=== PATIENT | female | born 1970 | race Caucasian/White ===

== ENCOUNTER 2021-09-20 16:28 | Outpatient (REF) | payer MEDICARE, MEDICAID, SELFPAY | END 2021-09-20 16:29 | disposition home or self-care (01) | LOC: LBN 16:28 | PROVIDERS: PCP Nurse Practitioner Family; Visit Provider Obstetrics & Gynecology | DX: N89.8 Other specified noninflammatory disorders of vagina (principal) | CPT/HCPCS: 87480; 87510; 87660 ==

== ENCOUNTER 2021-11-02 15:14 | Outpatient (REF) | payer MEDICARE, MEDICAID, SELFPAY ==
[2021-11-02 20:49] LABS: HCT 34.2 % (36.0-46.0); HGB 11.4 g/dL (11.2-15.7); MCH 33.5 pg (27.0-33.0); MCHC 33.3 % (32.0-36.0); MCV 100.6 fL (80-95); Platelet Count 172 10^3/uL (130-400); RDW 13.1 % (11.7-14.6); RDW-SD 48.8 fL; WBC 6.55 10^3/uL (4.4-10.8)
[2021-11-02 21:18] LABS: ALT 24 U/L (14-59); AST 11 U/L (15-37); Albumin 3.4 g/dL (3.4-5.0); Alkaline Phosphatase 77 U/L (46-116); Anion Gap 6.2 mmol/L (3-11); BUN 12 mg/dL (7-18); Bilirubin, Total 0.2 mg/dL (0.2-1.0); CO2 31.8 mmol/L (21.0-32.0); CREATININE 0.8 mg/dL (0.55-1.02); Calcium 8.8 mg/dL (8.5-10.1); Calculated LDL 134 mg/dL (<100); Chloride 103 mmol/L (98-107); Cholesterol 196 mg/dL (<200); Glucose 99 mg/dL (74-106); HDL Cholesterol 48 mg/dL (40-60); Potassium 4.2 mmol/L (3.5-5.1); Sodium 141 mmol/L (136-145); Total Protein 6.4 g/dL (6.4-8.2); Triglyceride 73 mg/dL (<150)
[2021-11-02 21:20] LABS: VALPROIC ACID 82.7 ug/mL
[2021-11-07 15:05] LABS: Iron 110 ug/dL (50-170); Total Iron Binding Capacity 259 ug/dL (250-450); Transferrin Sat 42 % (15-50)
[2021-11-07 22:02] LABS: Vitamin B12 931 pg/mL (211-911)
== END 2021-11-02 15:15 | disposition home or self-care (01) ==
LOC: NCHCN 15:14
PROVIDERS: PCP Nurse Practitioner Family; Visit Provider Nurse Practitioner Family
DX: Z51.81 Encounter for therapeutic drug level monitoring (principal); R20.2 Paresthesia of skin; J44.9 Chronic obstructive pulmonary disease, unspecified; Z00.00 Encounter for general adult medical examination without abnormal findings
CPT/HCPCS: 80053; 80061; 85027; 80164; 82607; 83540; 83550

== ENCOUNTER 2021-12-29 17:46 | Outpatient (REF) | payer MEDICARE, MEDICAID, SELFPAY | END 2021-12-29 17:47 | disposition home or self-care (01) | LOC: LBN 17:46 | PROVIDERS: PCP Nurse Practitioner Family; Visit Provider Obstetrics & Gynecology | DX: N89.8 Other specified noninflammatory disorders of vagina (principal); R32 Unspecified urinary incontinence | CPT/HCPCS: 87086; 87480; 87510; 87660 ==

== ENCOUNTER 2022-01-10 01:34 | Outpatient (CLI) | payer MEDICARE, MEDICAID, SELFPAY ==
--- NOTE | 2022-01-10 | DI.US_ITS ---
Exam(s) US THYROID EXAM: US THYROID CLINICAL HISTORY: HYPOTHYROID E03.9. TECHNIQUE: Ultrasound thyroid performed using standard protocol. COMPARISON: No exams were available for comparison FINDINGS: Both thyroid lobes exhibit normal size and echotexture. The isthmus is not thickened. There are no significant thyroid nodules. No significant adenopathy. ISTHMUS: Normal thickness. There are no nodules in the isthmus. IMPRESSION: 1. Normal sized thyroid gland 2. No thyroid nodules evident. 3. There is no significant lymphadenopathy. DATA REPOSITORY:
== END 2022-01-10 01:54 ==
PROVIDERS: PCP Nurse Practitioner Family; Visit Provider Nurse Practitioner Family
DX: E03.9 Hypothyroidism, unspecified (principal)
CPT/HCPCS: 76536

== ENCOUNTER → 2022-01-23 13:28 | Outpatient (BNVA) | payer MEDICARE, MEDICAID, SELFPAY | PROVIDERS: PCP Nurse Practitioner Family; Referring Provider Nurse Practitioner Family; Visit Provider Nurse Practitioner Adult Health | DX: G43.909 Migraine, unspecified, not intractable, without status migrainosus (principal); J44.9 Chronic obstructive pulmonary disease, unspecified | CPT/HCPCS: 99204 ==

== ENCOUNTER → 2022-05-10 14:42 | Outpatient (BNVA) | payer MEDICARE, MEDICAID, SELFPAY | PROVIDERS: PCP Nurse Practitioner Family; Referring Provider Nurse Practitioner Family; Visit Provider Physical Therapy Assistant | DX: Z12.11 Encounter for screening for malignant neoplasm of colon (principal) ==

== ENCOUNTER 2022-05-23 19:38 | Outpatient (REF) | payer MEDICARE, MEDICAID, SELFPAY ==
[2022-05-23 20:34] LABS: TSH (W/Ref FT4) 1.06 uIU/mL (0.36-3.74)
== END 2022-05-23 19:39 | disposition home or self-care (01) ==
LOC: NCHCN 19:38
PROVIDERS: PCP Nurse Practitioner Family; Visit Provider Nurse Practitioner Family
DX: E03.9 Hypothyroidism, unspecified (principal)
CPT/HCPCS: 84443

== ENCOUNTER 2022-06-01 16:18 | Outpatient (REF) | payer MEDICARE, MEDICAID, SELFPAY ==
--- NOTE | 2022-06-01 15:15 | PAPFT_PTH ---
PATIENT: Penelope Mathew LOC: [facility]#:[id number] AGE/SX: 51/F ROOM: RE06/01/[address]: Demi Goins : 1970 BED: DIS: 06/01/2022 SPEC #: [id number] RECD: 06/04/22 12:38 STATUS: CONI REIlsa #: [id number] GUANACO: 06/01/22 15:[address]: Demi Goins DEPT: [facility] Cytology RECD BY: Braxton Mccoy Tissues: 1 - CX/ENDOCX FOR PAP SMEARS Procedures: PAP THIN PREP/UVM Screening HPV DNA PROBE Comments: [id number] (HPV 16 & 18/45)
== END 2022-06-01 16:19 | disposition home or self-care (01) ==
LOC: NCHCN 16:18
PROVIDERS: PCP Nurse Practitioner Family; Visit Provider Nurse Practitioner Family
DX: Z12.4 Encounter for screening for malignant neoplasm of cervix (principal); Z01.419 Encounter for gynecological examination (general) (routine) without abnormal findings; Z11.51 Encounter for screening for human papillomavirus (HPV)
CPT/HCPCS: 88142; 87624

== ENCOUNTER 2022-06-06 06:43 | Day surgery (SDC) | payer MEDICARE, MEDICAID, SELFPAY ==
--- NOTE | 2022-06-06 06:22 | W.ANESPRE ---
General Info Date of Service Date Performed: 06/06/22 Height: 5 ft 6 in Weight: 84.822 kg Body Mass Index (BMI): 30.2 Surgical Procedure: Operation Date: 06/06/22 08:20 Proposed Procedure Side Surgeon solitario Hernandez MD Meds Allergies and Home Medications Allergies Allergy/AdvReac Type Severity Reaction Status Date / Time No Known Allergies Allergy Verified 06/06/22 07:13 Home Medication Medication Instructions Recorded divalproex 500 mg tablet,extended 500 mg PO DAILY 09/20/21 release 24 hr (Depakote ER) levothyroxine 75 mcg capsule 75 mcg PO DAILY 09/20/21 oxybutynin chloride 5 mg tablet 5 mg PO BID 09/20/21 albuterol sulfate 90 mcg/actuation 2 puff inhalation Q6H PRN 10/23/21 aerosol inhaler cariprazine 4.5 mg capsule 4.5 mg PO DAILY 10/23/21 (Vraylar) sumatriptan succinate 4 mg/0.5 mL 4 mg subcut DAILY PRN 12/11/21 subcutaneous pen injector (Imitrex STATdose Pen) celecoxib 200 mg capsule 200 mg PO DAILY 01/23/22 clonazepam 0.5 mg tablet 0.5 mg PO QHS 01/23/22 ferrous gluconate 240 mg (27 mg 240 mg PO DAILY 01/23/22 iron) tablet (Ferate) prazosin 1 mg capsule 1 mg PO QHS 01/23/22 quetiapine 100 mg tablet (Seroquel) 200 mg PO QHS 01/23/22 vilazodone 20 mg tablet (Viibryd) 40 mg PO DAILY 01/23/22 bisacodyl 5 mg tablet,delayed 5 mg PO ONCE #4 tabs 05/10/22 release (Dulcolax (bisacodyl)) polyethylene glycol 3350 17 17 g PO ONCE #238 grams 05/10/22 gram/dose oral powder sumatriptan succinate 4 mg/0.5 mL 4 mg subcut DIRECTED 06/04/22 subcutaneous pen injector tiotropium bromide 18 mcg capsule 1 inh inhalation DAILY 06/04/22 with inhalation device (Spiriva with HandiHaler) Current Visit Medications: Current Medications Generic Name Dose Route Start Last Admin Trade Name Freq PRN Reason Stop Dose Admin Ringer's Solution 1,000 mls @ 80 mls/hr 06/06/22 06:00 IV 07/05/22 23:59 INFUSION [facility] IV Miscellaneous Supplies 1 each 06/06/22 06:00 Iv Access IV 07/05/22 23:59 DIRECTED ANGELA Sodium Chloride 0 ml 06/06/22 06:00 Normal Saline Flush 10 Ml Syr IV 07/05/22 23:59 PRN PRN Sodium Chloride 0 ml 06/06/22 06:00 Normal Saline 10 Ml Vial IJ 07/05/22 23:59 DIRECTED PRN Sterile Water 0 ml 06/06/22 06:00 Water,Injection,Sterile 10 Ml Vial IJ 07/05/22 23:59 DIRECTED PRN PFSH Active Problems Active Problems: Problem Status Onset Code COPD (chronic obstructive pulmonary disease) J44.9 Smoker F17.200 Screening for colon cancer Z12.11 Medical History Medical History Candidal skin infection Cervical disc disease Depression Dyspareunia Fatigue H/O drug abuse Pt. states last drug use 20 years ago H/O suicide attempt H/O syphilis Hypothyroid Incontinence of urine in female Migraines Schizoaffective disorder Seasonal allergies Surgical History Surgical History H/O section Hx of hysterectomy for benign disease S/P cervical spinal fusion Tobacco Smoking/Tobacco Use Status: Current every day Tobacco Type: cigarettes Alcohol Alcohol Intake: never Substance Use Substance use: Current Sobriety Substance use type: former substance user Prental History Past Pregnancies Del. Date GA/Weeks # Preg Succ Route Wgt Sex Labor Lgth Anesthesia Location [facility] Compl 07/04/88 41 No 4479.225 g Male [facility] 02/23/90 40 No Female [facility] 06/25/92 40 No Female [facility] Vital Signs and Lab Results Vital Signs Most Recent Vital Signs in EMR: Temp Pulse Resp BP Pulse Ox 36.5 C 76 16 135/84 95 06/06/22 07:04 06/06/22 07:04 06/06/22 07:04 06/06/22 07:04 06/06/22 07:04 Lab Results Blood Type / Crossmatch: No Data to Display Complete Blood Count: No Data to Display Complete Metabolic Panel: No Data to Display Liver Function Panel: No Data to Display Coagulation Panel: No Data to Display Cardiac Panel: No Data to Display Arterial Blood Gas: No Data to Display Venous Blood Gas: No Data to Display Pancreas Panel: No Data to Display Thyroid Panel: Thyroid Stimulating Hormone (TSH) 1.06 uIU/mL (0.36-3.74) 05/23/22 14:36 Infectious Disease: No Data to Display Blood Cultures: No Data to Display Toxicology Panel: No Data to Display Panel: No Data to Display Anesthesia Assessment and Plan Anesthesia History Personal History: No History of Anesthesia Complications Family History: No Family History of Anesthesia Complications Exercise Tolerance Exercise Tolerance: Metabolic Equivalents>4 Cardiac & Pulmonary Exam Cardiac Exam: Normal S1/S2 Heart Sounds Pulmonary Exam: Clear Bilateral Breath Sounds Implantable Cardiac Device Does patient have a Pacemaker or an ICD?: No Airway Exam Known Difficult Airway: No Mallampati Class: 2 Mouth Opening: Normal (> 3cm) Thyromental Distance: Greater than 3 cm Neck Range of Motion: Full ROM Neck Circumference: Normal Teeth Condition: Normal Dentition ASA Classification ASA Score: ASA 2 Emergency Case?: No NPO Status NPO Status: NPO Clears >2 hours, Solids >8 hours Status Status: Not Relevant due to Medical History Anesthesia Plan Resuscitation Status: Full Code Anesthesia Technique: General Anesthesia Airway Planned: Natural Airway Monitors Used: Standard Monitors Preoperative Comments:: 51 yo female for screening colo. Sig PMHx: depression/schizoaffective, hypothyroid (levothyroxine), c spine fusion c4-7, smoker, former drug abuse, COPD (albuterol, spiriva), migraine.
--- NOTE | 2022-06-06 06:46 | W.COLOREPORT ---
Colonoscopy Report Date of procedure: 06/06/22 Pre-op diagnosis general: Colon Cancer Screening Post-op diagnosis procedure note: other (polyps) Procedure: Colonoscopy with polypectomy Surgeon: Ania Hernandez Anesthesia Type: General:No Airway Estimated blood loss (mL): 5 Pathology: other (Ascending, descending, sigmoid and rectal polyps) Complications: None Disposition: same day Indications: The patient is here for Colonoscopy pre-op. She has no family history of colon cancer. She has not had any bowel habit changes. -Discussed colonoscopy bowel prep as well as the procedure. Discussed possible complications of the procedure to include bleeding, pain, perforation, missed small lesion/polyp, sore throat, aspiration and adverse reaction to the medications. Questions were answered to patient?s satisfaction. No guarantees were implied or given.? Prep: Miralax/Dulcolax Procedure Start Time: 08:43 Procedure End Time: 09:38 Retraction Time: 44 minutes Findings: numerous polyps Procedure Description: After informed consent was obtained the patient was taken to the procedure room and placed in a left decubitous position. Monitors were applied and a time out was done. The patients name, date of , procedure, allergies to medications and metal in their body was reviewed. The patient was then sedated. Once sedated and comfortable a rectal exam was done. External exam was normal. Internal exam revealed a normal sphincter tone and no palpable masses. The scope was then introduced and retro-flexed. No internal hemorrhoids, polyps or masses were identified on retro-flexion. There was an internal skin tag. The scope was then advanced to the cecum without difficulty. The ileocecal vlave and appendiceal orifice were identified. The prep was good. The scope was then slowly retracted over 44 minutes back into the rectum. Polyps were removed with cold forceps in the ascending colon x3, descending polyps x2, sigmoid polyps x12 and rectum x10. One polyp was removed with a hot snare in the rectum.. There was no diverticulosis noted. The scope was removed and the patient was woken up and taken back to Same day surgery in stable condition. The patient tolerated the procedure well and there were no immediate complications.
--- NOTE | 2022-06-06 06:47 | W.PM.DSUDISC ---
Discharge Plan Disposition Patient Disposition: HOME Condition: Good Discharge Details Reason For Visit: colonoscopy Attending Provider: Ania Hernandez Primary Care Provider: Demi Goins Home Meds and New Rx's Prescriptions: Continued levothyroxine 75 mcg capsule 75 mcg PO DAILY divalproex [Depakote ER] 500 mg tablet extended release 24 hr 500 mg PO DAILY oxybutynin chloride 5 mg tablet 5 mg PO BID quetiapine [Seroquel] 100 mg tablet 200 mg PO QHS Label Comments: pt reports Viibryd 20 mg tablet 40 mg PO DAILY Rx Instructions: must administer with a meal/food prazosin 1 mg capsule 1 mg PO QHS ferrous gluconate [Ferate] 240 mg (27 mg iron) tablet 240 mg PO DAILY celecoxib 200 mg capsule 200 mg PO DAILY clonazepam 0.5 mg tablet 0.5 mg PO QHS Rx Instructions: administer 30 minutes before bedtime albuterol sulfate 90 mcg/actuation HFA aerosol inhaler 2 puff inhalation Q6H PRN Vraylar 4.5 mg capsule 4.5 mg PO DAILY sumatriptan succinate [Imitrex STATdose Pen] 4 mg/0.5 mL pen injector 4 mg subcut DAILY PRN Rx Instructions: do not exceed 2 doses in a 24 hour period Spiriva with HandiHaler 18 mcg capsule, w/inhalation device 1 inh INHALATION DAILY Label Comments: INHALE THE CONTENTS OF 1 CAPSULE VIA INHALATION DEVICE EVERY DAY sumatriptan succinate 4 mg/0.5 mL pen injector 4 mg SUBCUT DIRECTED Discontinued bisacodyl [Dulcolax (bisacodyl)] 5 mg tablet,delayed release (DR/EC) 5 mg PO ONCE Qty: 4 0RF Rx Instructions: Take according to provider's instructions for colonoscopy prep. polyethylene glycol 3350 17 gram/dose powder 17 g PO ONCE Qty: 238 0RF Rx Instructions: To be taken as directed by prescriber's office for colonoscopy prep. Discharge Instructions Instructions: Colorectal Polyps (DC) Additional Instructions: Findings: 28 polyps Follow up: will depend on final pathology. Referal to a outpatient admitting clerk is also recommended due to the number of polyps Please call if you develop: fevers >101.5 Nausea or Vomiting Abdominal pain that is not transient Rectal bleeding that is more then a tbsp A hard abdomen and inability to pass gas DAY SURGERY UNIT POST ENDOSCOPY INSTRUCTIONS Instructions for everyone who is given Anesthesia: For your safety, please do the following for the next 24 Hours: a. Do not drive or operate dangerous equipment b. Do not drink alcohol beverages or use any recreational drugs for the first 24 hours or while taking pain medications. The medications in your body may have a reaction that can be dangerous. c. Do not make any important decisions or sign any important papers 1. Generally there are no restrictions on your activity after a day or so has gone by, but you may feel a bit fatigued for a few days. 2. After you arrive home you may have a light meal and return to a normal diet as you can tolerate it without feeling sick to your stomach. 3. After surgery, you may feel pain or discomfort. This should be only transient, but if it persists please contact your doctor. 4. If there are any questions regarding the findings of your procedure, please feel free to contact your doctor. 6. If you are unable to contact your doctor with a problem, contact the hospital at [phone]. 7. Continue all your regular medications unless directed otherwise. I understand the above instructions and have no questions. Signature of Patient or Responsible Adult Escort Date/Time Name of Responsible Adult Escort Signature of Nurse Date/Time Stand Alone Forms: Chel Nazario (JACQUELINE) Activity:: Activity as Tolerated Diet:: As Tolerated Discharge Orders Discharge Orders: Discharge Order (Routine); Ordered 06/06/22 Ordered By: Ania Hernandez
[2022-06-06 07:04] VITALS: BP 135/84; PULSE 76; RESP 16; TEMP 36.5; O2SAT 95
[2022-06-06] MEDS: Lactated Ringers 1,000 ML 80 ML IV (07:34)
[2022-06-06 07:47] VITALS: BP 135/84; PULSE 76; RESP 16; TEMP 36.5; O2SAT 95
[2022-06-06 08:28] VITALS: BMI 30.2
--- NOTE | 2022-06-06 08:51 | BOWEL_PTH ---
PATIENT: Penelope Mathew LOC: [facility] U#:[id number] AGE/SX: 51/F ROOM: RE06/06/[address]: Ania Hernandez MD : 1970 BED: DIS: 06/06/2022 SPEC #: [id number] RECD: 06/06/22 13:08 STATUS: CONI REQ #: [id number] GUANACO: 06/06/22 08:[address]: Ania Hernandez DEPT: Surgical Specimen RECD BY: Ariella Daniels ENTERED: 06/06/22 13:11 SP TYPE: Bowel OTHR DR: Demi Goins Tissues: 1 - BIOPSY BOWEL 2 - BIOPSY BOWEL 3 - BIOPSY BOWEL 4 - BIOPSY BOWEL Procedures: GROSS AND MICRO LEVEL 4 Comments: [id number]
[2022-06-06 09:43] VITALS: BP 156/109; PULSE 67; RESP 16; TEMP 36.3; O2SAT 98
[2022-06-06 10:19] VITALS: BP 142/93; PULSE 56; RESP 16; TEMP 36.4; O2SAT 98
--- NOTE | 2022-06-06 10:24 | W.ANESPOSTOP ---
Postoperative Evaluation Date, Time and Location Date Performed: 06/06/22 Time Performed: 09:55 Patient Location: Day Surgery Unit Vital Signs Most Recent Imported Vital Signs: Most Recent Vital Signs Temp Pulse Resp BP Pulse Ox 36.4 C L 56 L 16 142/93 H 98 06/06/22 10:19 06/06/22 10:19 06/06/22 10:19 06/06/22 10:19 06/06/22 10:19 Pain Score Most Recent Pain Score: Most Recent Pain Score Pain Level 0 06/06/22 10:19 Assessment Mental Status: Awake (Alert & Oriented to Patient Baseline) Airway and Respiratory Function: Patent airway with normal (patient baseline) respiratory exam Cardiovascular Function: Hemodynamically Stable Hydration Status: Adequately Hydrated Nausea & Vomiting: No Nausea or Vomiting Pain: Pt. Denies Any Pain Peripheral Nerve Block: Patient did not receive a nerve block
== END 2022-06-06 10:55 | disposition home or self-care (01) ==
PROVIDERS: PCP Nurse Practitioner Family; Visit Provider Surgery
PROC: 0DJD8ZZ Inspection of Lower Intestinal Tract, Via Natural or Artificial Opening Endoscopic (ICD-10-PCS; CPT 45378; principal; 2022-06-06 08:15)
DX: Z12.11 Encounter for screening for malignant neoplasm of colon (principal); F17.210 Nicotine dependence, cigarettes, uncomplicated; J44.9 Chronic obstructive pulmonary disease, unspecified; K62.1 Rectal polyp; K63.5 Polyp of colon
CPT/HCPCS: 45385; 45380; 88305; J2704

== ENCOUNTER → 2022-06-08 00:09 | Outpatient (CLI) | payer MEDICARE, MEDICAID, SELFPAY ==
--- NOTE | 2022-06-08 13:00 | DI.CTLCSR_ITS ---
Exam(s) CT CHEST LUNG CANCER SCREEN EXAM: CT CHEST LUNG CANCER SCREEN CLINICAL HISTORY: CIGARETTE SMOKER, F17.210; SCREENING FOR LUNG CA TECHNIQUE: Imaging Protocol: Axial computed tomography images with coronal and sagittal reformatted images were created and reviewed. Low dose screening protocol. COMPARISON: No exams were available for comparison FINDINGS: Tracheobronchial tree: No bronchiectasis or mucus plugging.. Mediastinum and Angely: No dominant adenopathy or fluid collection. Pulmonary parenchyma: No consolidation or dominant measurable mass. No visible emphysematous or inter stitial changes. Lung Nodules: 7 millimeter diameter ground-glass nodule right upper lobe. No suspicious nodules. Pleura: No effusion. No pneumothorax. Heart: The heart is not dilated. Mild coronary artery calcifications are seen. Aorta: Thoracic aorta non-dilated. Upper abdomen: Unremarkable. Bones: Lower cervical fusion. Degenerative disc changes. No compression fractures. Soft Tissues: Unremarkable. IMPRESSION: A 7 millimeter ground-glass nodule right upper lobe. No suspicious pulmonary nodules. Lung RADS Cat 2 - Benign Appearance / Behavior: Nodules with a very low likelihood of becoming a clin ically active cancer due to size or lack of growth Lung-RADS 1.0 CATEGORIES: Category 0 - Prior chest CT exam(s) being located for comparison. Category 1 - Annual screening in 12 months. No nodules or definitely benign nodules. Category 2 - Annual screening in 12 months. Benign appearance. Nodules with low likelihood of becomin g active cancer. Category 3 - 6-month follow-up. Probably benign. Short-term follow-up suggested. Nodules with low lik elihood of becoming active cancer. Category 4A - 3-month follow-up and CT/PET if >8 mm in size. Suspicious finding. Findings which requi re additional testing. Category 4B - Findings which require additional testing and tissue sampling. Category 4X - Category 3 or 4 nodules with additional features or imaging findings that increases the suspicion of malignancy. Modifier S- Potentially clinically significant findings (non lung cancer) RADIATION DOSE DELIVERED: 80.97mGy.cm Total DLP 1.84mGy CTDIvol DATA REPOSITORY: All CT scans at this facility are submitted to the National Radiology Data Registry (NRDR) Dose Index Registry (DIR) with the [employer] ([employer]). RADIATION OPTIMIZATION: All CT scans at this facility use at least one of these dose optimization te chniques: automated exposure control; mA and/or kV adjustment per patient size (includes targeted exa ms where dose is matched to clinical indication); or iterative reconstruction.
== END ==
PROVIDERS: PCP Nurse Practitioner Family; Visit Provider Nurse Practitioner Family
DX: F17.210 Nicotine dependence, cigarettes, uncomplicated (principal); Z12.2 Encounter for screening for malignant neoplasm of respiratory organs; R91.1 Solitary pulmonary nodule
CPT/HCPCS: 71271

== ENCOUNTER → 2022-06-12 01:04 | Outpatient (CLI) | payer MEDICARE, MEDICAID, SELFPAY ==
--- NOTE | 2022-06-12 11:41 | DI.MAMMO_ITS ---
Exam(s) MAMMO SCREENING EXAM: MAMMO SCREENING CLINICAL HISTORY: SCREENING, Z12.31 TECHNIQUE: Bilateral full field digital CC and MLO mammographic images were obtained with 3D tomosyn thesis and utilizing computer aided detection (CAD). COMPARISON: None. FINDINGS: Masses/Architectural Distortion: None seen. Microcalcifications: No suspicious pleomorphic-type are seen. Skin Thickening/Nipple Retraction: None. IMPRESSION: 1. No significant interval change with no specific features of malignancy noted. 2. Unless there is more urgent need, screening mammography is recommended, as per [employer] guidelines. BI-RADS Category 1 - Negative Breast Density - Category B - Scattered areas of fibroglandular density Breast density category C or D implies that the patient has dense breast tissue. Dense breast tissue is very common and is not abnormal but dense breast tissue can make it harder to find cancer on a ma mmogram. Also, dense breast tissue may increase their breast cancer risk. This information about the result of the mammogram report was provided to the patient to raise their awareness. Use this report when you speak with the patient about their risks for breast cancer, which includes their family hist ory. At that time, you may recommend for more screening tests (Ultrasound or MRI) as they might be us eful based on their risk. A negative radiographic report should not delay biopsy if a dominant or clinically suspicious mass is present. Up to ten percent of cancers are not identified on mammography. A negative report may reinforce clinical impression. Adenosis and dense breasts may obscure an underlying neoplasm. False positive reports average 6 to 10%. Patient will receive a letter notifying them of these results.
== END ==
PROVIDERS: PCP Nurse Practitioner Family; Visit Provider Nurse Practitioner Family
DX: Z12.31 Encounter for screening mammogram for malignant neoplasm of breast (principal)
CPT/HCPCS: 77063; 77067

== ENCOUNTER 2022-06-26 13:34 | Emergency (ER) | payer MEDICARE, MEDICAID, SELFPAY ==
[2022-06-26 13:54] VITALS: BP 116/78; PULSE 135; RESP 17; TEMP 36.7; O2SAT 95
[2022-06-26] MEDS: Normal Saline 1,000 ML 1000 ML IV (14:32)
[2022-06-26] MEDS: Naloxone 0.4 MG/ML VIAL IVP ×2 (14:32→17:53)
[2022-06-26 14:39] LABS: Source Nasal/Nares
[2022-06-26 14:44] LABS: Abs Immature Grans 0.04 10^3/uL (0.0-0.06); Absolute Basophil Count 0.05 10^3/uL (0.0-0.2); Absolute Eosinophil Count 0.17 10^3/uL (0.0-0.7); Absolute Lymphocyte Count 1.52 10^3/uL (1.2-3.4); Absolute Monocyte Count 1.54 10^3/uL (0.1-0.8); Absolute Neutrophil Count 6.73 10^3/uL (1.2-6.7); Basophils % 0.5; Eosinophils % 1.7; HCT 34.6 % (36.0-46.0); HGB 12.1 g/dL (11.2-15.7); Immature Grans % 0.4; Lymphocytes % 15.1; MCH 34.4 pg (27.0-33.0); MCV 98 fL (80-95); Monocytes % 15.3; Platelet Count 106 10^3/uL (130-400); RBC 3.52 10^6/uL (3.93-5.22); RDW 13.1 % (11.7-14.6); RDW-SD 46.7 fL; WBC 10.05 10^3/uL (4.4-10.8)
[2022-06-26 14:57] LABS: Diff Comment Agrees w/ Instrument; RBC Morphology Normal
[2022-06-26 15:09] LABS: ALT 68 U/L (14-59); AST 298 U/L (15-37); Albumin 3.3 g/dL (3.4-5.0); Alkaline Phosphatase 64 U/L (46-116); Anion Gap 8.1 mmol/L (3-11); BUN 11 mg/dL (7-18); Bilirubin, Total 0.4 mg/dL (0.2-1.0); CO2 28.9 mmol/L (21.0-32.0); CREATININE 1.4 mg/dL (0.55-1.02); Calcium 8.9 mg/dL (8.5-10.1); Chloride 98 mmol/L (98-107); Estimated GFR 45.55 (mL/min/1.73m2); Glucose 116 mg/dL (74-106); Magnesium 1.5 mg/dL (1.8-2.4); Sodium 135 mmol/L (136-145); Total Protein 7.1 g/dL (6.4-8.2)
[2022-06-26 15:12] LABS: COVID-19 PCR Negative (Negative)
[2022-06-26 15:12] LABS: ETHANOL BLOOD < 3.0 mg/dL (<10)
--- NOTE | 2022-06-26 15:55 | W.ED.GENAD ---
Discharge Plan Disposition Patient Disposition: HOME Condition: Stable Discharge Details Clinical Impression: Opiate overdose Primary Care Provider: Demi Goins ED Provider: Janet Garrison Home Meds and New Rx's Prescriptions: Continued levothyroxine 75 mcg capsule 75 mcg PO DAILY quetiapine [Seroquel] 100 mg tablet 200 mg PO QHS Label Comments: pt reports Viibryd 20 mg tablet 40 mg PO DAILY Rx Instructions: must administer with a meal/food prazosin 1 mg capsule 1 mg PO QHS ferrous gluconate [Ferate] 240 mg (27 mg iron) tablet 240 mg PO DAILY celecoxib 200 mg capsule 200 mg PO DAILY albuterol sulfate 90 mcg/actuation HFA aerosol inhaler 2 puff inhalation Q6H PRN Vraylar 4.5 mg capsule 4.5 mg PO DAILY sumatriptan succinate [Imitrex STATdose Pen] 4 mg/0.5 mL pen injector 4 mg subcut DAILY PRN Rx Instructions: do not exceed 2 doses in a 24 hour period Spiriva with HandiHaler 18 mcg capsule, w/inhalation device 1 inh INHALATION DAILY Label Comments: INHALE THE CONTENTS OF 1 CAPSULE VIA INHALATION DEVICE EVERY DAY No Action divalproex [Depakote ER] 500 mg tablet extended release 24 hr 500 mg PO DAILY oxybutynin chloride 5 mg tablet 5 mg PO BID clonazepam 0.5 mg tablet 0.5 mg PO QHS Rx Instructions: administer 30 minutes before bedtime sumatriptan succinate 4 mg/0.5 mL pen injector 4 mg SUBCUT DIRECTED Discharge Instructions Instructions: Narcotic Safety (ED), Opioid Safety (ED) Additional Instructions: At this time urine drug screen is positive for opiates however I do not see any opiates on your medication list. I do feel like this is what is making more sleepy. Please discuss this with your primary care provider. Follow up with primary care provider in 3-5 days. Return to ED sooner if any worsening or concerns. Increase oral fluids. Referrals: Demi Goins [Primary Care Provider] - 3 days Discharge Data Discharge Date/Time-TO BE ENTERED AT DEPARTURE: 06/26/22 18:25 Medical Decision Making <Fuad Amaro NP - Last Filed: 06/27/22 10:42> Patient presenting to the emergency department for chief complaint of altered mental status. Patient was upstairs visiting his mother when mother's primary physician noted that patient was dozing off significantly. Nurse did check patient's temperature which was elevated at that time but patient denies any febrile symptoms and multiple checks at triage show patient is afebrile. Patient states her only complaint was some low back pain that started this morning but was mild and took [id number] meds. Patient denies any ingestion of opioids or other medications. Physical exam shows a altered female that appears almost intoxicated but has multiple episodes of dozing off during exam. Patient has no obvious spinal findings, spine is nontender, exam is otherwise unremarkable beyond altered mental status. We will check patient's labs including UDS and will give patient trial dose of Narcan for possible medication diversion. Patient is also on benzos but do not feel that Romazicon is needed at this time. Reviewed patient's labs CBC is overall nondiagnostic, CMP does show a slightly low sodium, potassium is 3.0, magnesium of 1.5, significant elevation of AST and slight elevation of t. patient's alcohol was not detected. Still pending urinalysis and UDS. Will give patient IV magnesium and IV/PO potassium pending results. We will also add on ammonia given elevated liver function to see if this is why patient is altered. 1600: SJ: Care assumed from provider (Will Amaro, MERRITT) Please see their initial HPI, PE, and documentation. Discussed patient details and case and pending workup and disposition. Patient is hemodynamically stable, and alert and oriented. She is somnolent she falls asleep easily during conversation. Urine drug screen shows positive for THC and opiates O2 sat dropped to 88 to 89% on room air while sleeping. Patient was placed on 2 L nasal cannula by staff counsel. An additional 0.4 mg of Narcan IV ordered due to the positive opiates on the urine drug screen. 1810: Patient woke up more after second Narcan administration. Patient is requesting to be discharged home. At this time I do feel it is safe for patient be discharged home. We will discussed opiate in her urine drug screen. Patient discharged with Narcan to go. When asked about opiate she reports that friend gave her a Percocet this morning. Patient will call for a ride. This text was generated using [employer] system, please disregard any oddities of phrase or misspellings. <Janet Garrison NP - Last Filed: 06/26/22 18:39> Patient presenting to the emergency department for chief complaint of altered mental status. Patient was upstairs visiting his mother when mother's primary physician noted that patient was dozing off significantly. Nurse did check patient's temperature which was elevated at that time but patient denies any febrile symptoms and multiple checks at triage show patient is afebrile. Patient states her only complaint was some low back pain that started this morning but was mild and took [id number] meds for her. Patient denies any ingestion of opioids or other medications. Physical exam shows a altered female that appears almost intoxicated but has multiple episodes of dozing off during exam. Patient has no obvious spinal findings, spine is nontender, exam is otherwise unremarkable beyond altered mental status. We will check patient's labs including UDS and will give patient trial dose of Narcan for possible medication diversion. Patient is also on benzos but do not feel that Romazicon is needed at this time. Reviewed patient's labs CBC is overall nondiagnostic, CMP does show a slightly low sodium, potassium is 3.0, magnesium of 1.5, significant elevation of AST and slight elevation of t. patient's alcohol was not detected. Still pending urinalysis and UDS. Will give patient IV magnesium and IV potassium pending results. We will also add on ammonia given elevated liver function to see if this is why patient is altered. 1600: S[place]: Care assumed from provider (Will Amaro NP) Please see their initial HPI, PE, and documentation. Discussed patient details and case and pending workup and disposition. Patient is hemodynamically stable, and alert and oriented. She is somnolent she falls asleep easily during conversation. Urine drug screen shows positive for THC and opiates O2 sat dropped to 88 to 89% on room air while sleeping. Patient was placed on 2 L nasal cannula by staff counsel. An additional 0.4 mg of Narcan IV ordered due to the positive opiates on the urine drug screen. 1810: Patient woke up more after second Narcan administration. Patient is requesting to be discharged home. At this time I do feel it is safe for patient be discharged home. We will discussed opiate in her urine drug screen. Patient discharged with Narcan to go. When asked about opiate she reports that friend gave her a Percocet this morning. Patient will call for a ride. This text was generated using [employer] dictation system, please disregard any oddities of phrase or misspellings. HPI <Fuad Amaro NP - Last Filed: 06/27/22 10:42> General Mode of arrival: wheelchair. Date/Time Provider Initiated Documentation: 06/26/22 14:18. Limitations to Documentation: altered mental status. Information obtained by: patient and RN notes reviewed. History of Present Illness 51 year old F presents to the emergency department with the chief complaint of AMS , with intensity rated at 4. Quality is described as aching, and is localized to the back. Patient started experiencing this day(s) (1) and it has been constant. No relieving factors improve symptom(s), No exacerbating factors reported . Patient notes no other symptoms.. Patient did receive the following treatments prior to arrival, none Related Data Home Medications Medication Instructions Recorded Confirmed divalproex 500 mg tablet,extended 500 mg PO DAILY 09/20/21 06/06/22 release 24 hr (Depakote ER) levothyroxine 75 mcg capsule 75 mcg PO DAILY 09/20/21 06/06/22 oxybutynin chloride 5 mg tablet 5 mg PO BID 09/20/21 06/06/22 albuterol sulfate 90 mcg/actuation 2 puff inhalation Q6H PRN 10/23/21 06/06/22 aerosol inhaler cariprazine 4.5 mg capsule 4.5 mg PO DAILY 10/23/21 06/06/22 (Vraylar) sumatriptan succinate 4 mg/0.5 mL 4 mg subcut DAILY PRN 12/11/21 06/06/22 subcutaneous pen injector (Imitrex STATdose Pen) celecoxib 200 mg capsule 200 mg PO DAILY 01/23/22 06/06/22 clonazepam 0.5 mg tablet 0.5 mg PO QHS 01/23/22 06/06/22 ferrous gluconate 240 mg (27 mg 240 mg PO DAILY 01/23/22 06/06/22 iron) tablet (Ferate) prazosin 1 mg capsule 1 mg PO QHS 01/23/22 06/06/22 quetiapine 100 mg tablet (Seroquel) 200 mg PO QHS 01/23/22 06/06/22 vilazodone 20 mg tablet (Viibryd) 40 mg PO DAILY 01/23/22 06/06/22 sumatriptan succinate 4 mg/0.5 mL 4 mg subcut DIRECTED 06/04/22 06/06/22 subcutaneous pen injector tiotropium bromide 18 mcg capsule 1 inh inhalation DAILY 06/04/22 06/06/22 with inhalation device (Spiriva with HandiHaler) Allergies Allergy/AdvReac Type Severity Reaction Status Date / Time No Known Allergies Allergy Verified 06/06/22 07:13 General Stated Complaint: OD/Poison ORALIA: 3 Review of Systems <Fuad Amaro NP - Last Filed: 06/27/22 10:42> Constitutional Constitutional: Denies chills and Denies fever(s) Cardiovascular Cardiovascular: Denies chest pain and Denies dyspnea on exertion Respiratory Respiratory: Denies cough and Denies dyspnea on exertion Gastrointestinal Gastrointestinal: Denies abdominal pain, Denies change in bowel habits, Denies diarrhea, Denies nausea and Denies vomiting Genitourinary Genitourinary: Denies urinary incontinence Musculoskeletal Musculoskeletal: Reports as per HPI and Reports back pain Neurologic Neurologic: Denies confusion, Denies sensory deficit and Denies paresthesias Psychiatric Psychiatric: Denies confusion PFSH <Fuad Amaro NP - Last Filed: 06/27/22 10:42> All Active Problems (Updated 06/26/22 @ 18:13 by Janet Garrison NP) Opiate overdose (Acute) Hyperplastic colon polyp (Acute) Tubular adenoma of colon (Acute) COPD (chronic obstructive pulmonary disease) (Chronic) Smoker (Acute) Screening for colon cancer (Acute) Medical History (Updated 06/26/22 @ 18:13 by Janet Garrison NP) Candidal skin infection Cervical disc disease Depression Dyspareunia Fatigue H/O drug abuse Pt. states last drug use 20 years ago H/O suicide attempt H/O syphilis Hypothyroid Incontinence of urine in female Migraines Schizoaffective disorder Seasonal allergies Surgical History H/O section History of colonoscopy (~05/2022) Hx of hysterectomy for benign disease S/P cervical spinal fusion Family History Other Cancer Depression Heart disease Social History (Updated 05/10/22 @ 15:12 by YUKI Flynn) Smoking/Tobacco Use Status: Current every day Tobacco Type: cigarettes Quit status: considering quitting Smoking risk assessment performed?: Yes Alcohol Intake: never Drug use: Current Sobriety Substance use type: former substance user Do you think of yourself as: straight/heterosexual Current gender identity: female What is your relationship status?: Panel score (0-1 are the most socially isolated patients): 0 Teresa/Moravian: Amish Do you feel safe at home: Yes (lives with parents) Do you feel safe in your relationship?: Yes Female Reproductive History Menstrual Age of Menarche: 14 Duration of menses: 3-5 days control method: none Menopause type: surgical History Past Pregnancies Del. Date GA/Weeks # Preg Succ Route Wgt Sex Labor Lgth Anesthesia Location [facility] 07/04/88 41 No 4479.225 g Male [facility] 02/23/90 40 No Female [facility] 06/25/92 40 No Female [facility] Exam <Fuad Amaro NP - Last Filed: 06/27/22 10:42> Const General: cooperative and no acute distress Orientation: alert, awake and oriented x3 Neck Neck: normal visual inspection, full ROM and no meningeal signs Resp Effort & Inspection: normal respiratory effort Auscultation: clear to auscultation bilaterally Cardio Rate: regular rate Rhythm: regular rhythm Heart Sounds: S1 normal and S2 normal Back/Spine/Pelvis Cervical Spine: normal cervical lordosis and No cervical spinal tenderness Thoracic/Lumbar Spine: thoracic and lumbar spine normal to inspection, No thoracic spinal tenderness and No lumbar spinal tenderness Neuro General: patient alert, patient awake, patient oriented x3, moves all extremities, patient confused and other (Somnolent and dozes off during exam) Course <Fuad Amaro NP - Last Filed: 06/27/22 10:42> Vital Signs Vital signs: Vital Signs Temperature 36.7 C 06/26/22 13:54 Pulse 135 H 06/26/22 13:54 Respiratory Rate 17 06/26/22 13:54 Blood Pressure 116/78 06/26/22 13:54 Pulse Oximetry 95 08/30/22 13:54 Temperature 36.7 C 06/26/22 13:54 Temperature Source Oral 06/26/22 13:54 Pulse 135 H 06/26/22 13:54 Respiratory Rate 17 06/26/22 13:54 Respiratory Effort Non-Labored 06/26/22 14:00 Blood Pressure 116/78 06/26/22 13:54 Blood Pressure Position Sitting 06/26/22 13:54 Pulse Oximetry 95 06/26/22 13:54 Oxygen Delivery Method Room Air 06/26/22 13:54 Oxygen Flow Rate 0 06/26/22 13:54 Pain Level 5 06/26/22 13:54 Comment 06/26/22 13:54 Lab/Test Results Lab/Test Results: Laboratory Tests Range/Units 06/26/22 06/26/22 06/26/22 14:33 14:35 14:35 WBC (4.4-10.8) 10^3/uL 10.05 RBC (3.93-5.22) 10^6/uL 3.52 L Hgb (11.2-15.7) g/dL 12.1 Hct (36.0-46.0) % 34.6 L MCV (80-95) fL 98 H MCH (27.0-33.0) pg 34.4 H MCHC (32.0-36.0) % 35.0 RDW (11.7-14.6) % 13.1 Plt Count (130-400) 10^3/uL 106 L MPV (8.0-11.0) fL 11.0 Immature Gran % 0.4 Neutrophils % 67.0 Lymphocytes % 15.1 Monocytes % 15.3 Eosinophils % 1.7 Basophils % 0.5 Nucleated RBC % (0.0-0.3) % 0.0 Absolute Neutrophils (1.2-6.7) 10^3/uL 6.73 H Absolute Lymphocytes (1.2-3.4) 10^3/uL 1.52 Absolute Monocytes (0.1-0.8) 10^3/uL 1.54 H Absolute Eosinophils (0.0-0.7) 10^3/uL 0.17 Absolute Basophils (0.0-0.2) 10^3/uL 0.05 RBC Morphology Normal Sodium (136-145) mmol/L 135 L Potassium (3.5-5.1) mmol/L 3.0 L Chloride (98-107) mmol/L 98 Carbon Dioxide (21.0-32.0) mmol/L 28.9 Anion Gap (3-11) mmol/L 8.1 BUN (7-18) mg/dL 11 Creatinine (0.55-1.02) mg/dL 1.4 H Est GFR (CKD-EPI 2020) (mL/min/1.73m2) 45.55 Glucose (74-106) mg/dL 116 H Calcium (8.5-10.1) mg/dL 8.9 Magnesium (1.8-2.4) mg/dL 1.5 L Total Bilirubin (0.2-1.0) mg/dL 0.4 AST (15-37) U/L 298 H ALT (14-59) U/L 68 H Alkaline Phosphatase (46-116) U/L 64 Total Protein (6.4-8.2) g/dL 7.1 Albumin (3.4-5.0) g/dL 3.3 L Ethyl Alcohol (<10) mg/dL < 3.0 COVID-19 Source Nasal/Nares SARS-CoV-2 (PCR) (Negative) Negative Sign Out <Fuad Amaro NP - Last Filed: 06/27/22 10:42> Sign Out Data: Sign Out Comment: Patient pending ammonia and UDS along with reassessment for altered mental status of unknown cause with possible medication diversion or abuse. Last updated by Fuad Amaro NP at 06/26/22 16:00
[2022-06-26 15:59] LABS: Ammonia < 10 umol/L (11-32)
[2022-06-26] MEDS: MAGNESIUM SULFATE 2 GM/50 ML BAG IVPB (16:00)
[2022-06-26 16:17] LABS: Bilirubin Negative (Negative); Blood Large (Negative); Clarity Clear (Clear); Glucose Negative (Negative); Ketones Negative (Negative); Leukocyte Esterase Negative (Negative); Nitrite Negative (Negative); Specific Gravity 1.015 (1.005-1.025); Urobilinogen 0.2 EU/dL (Up TO 0.2)
[2022-06-26 16:29] LABS: Bacteria Few HPF (Negative); C & S Indicated? No; Casts 10-20 Hyaline LPF (Negative); Crystals Negative HPF (Negative); Epithelial Cells Many HPF (Negative); Mucus Moderate (Negative); WBC 0-2 HPF (0-5)
[2022-06-26] MEDS: POTASSIUM CHLORIDE 10 MEQ/100 ML BAG 100 MEQ IVPB (16:45)
[2022-06-26 16:53] LABS: *AMPHETAMINES SCREEN URINE Negative (Negative); *BARBITURATES SCREEN URINE Negative (Negative); *BENZODIAZEPINES SCREEN URINE Negative (Negative); Cannabinoids THC Positive (Negative); Cocaine Screen,Urine Negative (Negative); METHADONE URINE SCREEN Negative (Negative); OPIATES URINE SCREEN Positive (Negative)
--- NOTE | 2022-06-26 17:05 | NUR.NOTE ---
Nursing Note: Patient gave permission to speak with Alina and give her information.
[2022-06-26 17:06] LABS: Tricyclic Antidepressants Negative (Negative)
[2022-06-26] MEDS: Potassium Chloride 20 MEQ TABCR 40 MEQ PO (17:10)
[2022-06-26 18:10] VITALS: BP 126/80; PULSE 70; RESP 12; RESP 18; TEMP 36.8; O2SAT 99
== END 2022-06-26 18:25 | disposition home or self-care (01) ==
PROVIDERS: Nurse Practitioner Family; Emergency Provider Registered Nurse Emergency; PCP Nurse Practitioner Family
DX: T40.601A Poisoning by unspecified narcotics, accidental (unintentional), initial encounter (principal); R41.82 Altered mental status, unspecified; E87.6 Hypokalemia; E87.1 Hypo-osmolality and hyponatremia; R74.8 Abnormal levels of other serum enzymes; F17.210 Nicotine dependence, cigarettes, uncomplicated; Z20.822 Contact with and (suspected) exposure to COVID-19
CPT/HCPCS: 80053; 80307; 87635; 96361; 96365; 96367; 96375; 96376; 99284; 80320; 81003; 81015; 82140; 83735; 85025; J2310; J3480

== ENCOUNTER 2022-08-30 13:46 | Outpatient (REF) | payer MEDICARE, MEDICAID, SELFPAY ==
[2022-09-04 15:21] LABS: 2-Hydroxy Ethyl Flurazepam Not Detected ng/mL (Cutoff: 10); 3,4-methylenedioxyamphetamine Not Detected ng/mL (Cutoff: 100); 3,4-methylenedioxyethylampheta Not Detected ng/mL (Cutoff: 100); 3,4-methylenedioxymethamphetam Not Detected ng/mL (Cutoff: 100); 6-monoacetylmorphine Not Detected ng/mL (Cutoff: 25); Alpha-Hydroxy Midazolam Not Detected ng/mL (Cutoff: 10); Alpha-Hydroxy Triazolam Not Detected ng/mL (Cutoff: 10); Alpha-Hydroxyalprazolam Not Detected ng/mL (Cutoff: 10); Alpha-OH-alprazolam Glucuronid Not Detected ng/mL (Cutoff: 50); Alprazolam Not Detected ng/mL (Cutoff: 10); Amphetamine Not Detected ng/mL (Cutoff: 100); Barbiturates Negative ng/mL (Cutoff: 200); Buprenorphine Not Detected ng/mL (Cutoff: 5); Chlordiazepoxide Not Detected ng/mL (Cutoff: 10); Clobazam Not Detected ng/mL (Cutoff: 10); Clonazepam Not Detected ng/mL (Cutoff: 10); Cocaine Negative ng/mL (Cutoff: 150); Codeine Not Detected ng/mL (Cutoff: 25); Comment Normal; Creatinine, U 25.9 mg/dL; Diazepam Not Detected ng/mL (Cutoff: 10); Dihydrocodeine Not Detected ng/mL (Cutoff: 25); EDDP Not Detected ng/mL (Cutoff: 25); Ephedrine Not Detected ng/mL (Cutoff: 100); Fentanyl Not Detected ng/mL (Cutoff: 2); Flurazepam Not Detected ng/mL (Cutoff: 10); Hydrocodone Not Detected ng/mL (Cutoff: 25); Hydromorphone Not Detected ng/mL (Cutoff: 25); Hydromorphone-3-beta-glucuroni Not Detected ng/mL (Cutoff: 100); Lorazepam Not Detected ng/mL (Cutoff: 10); Lorazepam Glucuronide Not Detected ng/mL (Cutoff: 50); Meperidine Not Detected ng/mL (Cutoff: 25); Methadone Not Detected ng/mL (Cutoff: 25); Methamphetamine Not Detected ng/mL (Cutoff: 100); Methylphenidate Not Detected ng/mL (Cutoff: 20); Midazolam Not Detected ng/mL (Cutoff: 10); Morphine Not Detected ng/mL (Cutoff: 25); N-Desmethylclobazam Not Detected ng/mL (Cutoff: 200); N-desmethyltapentadol Not Detected ng/mL (Cutoff: 50); Naloxone Not Detected ng/mL (Cutoff: 25); Norbuprenorphine Not Detected ng/mL (Cutoff: 5); Norfentanyl Not Detected ng/mL (Cutoff: 2); Norhydrocodone Not Detected ng/mL (Cutoff: 25); Normeperidine Not Detected ng/mL (Cutoff: 25); Noroxycodone Not Detected ng/mL (Cutoff: 25); Noroxymorphone Not Detected ng/mL (Cutoff: 25); O-desmethyltramadol Not Detected ng/mL (Cutoff: 25); Oxazepam Glucuronide Not Detected ng/mL (Cutoff: 50); Phencyclidine (PCP) Not Detected ng/mL (Cutoff: 20); Phentermine Not Detected ng/mL (Cutoff: 100); Prazepam Not Detected ng/mL (Cutoff: 10); Propoxyphene Not Detected ng/mL (Cutoff: 25); Pseudoephedrine Not Detected ng/mL (Cutoff: 100); Ritalinic Acid Not Detected ng/mL (Cutoff: 100); Specific Gravity 1.007; Tapentadol Not Detected ng/mL (Cutoff: 25); Temazepam Not Detected ng/mL (Cutoff: 10); Temazepam Glucuronide Not Detected ng/mL (Cutoff: 50); Tetrahydrocannabinol Presumptive Positive ng/mL (Cutoff: 50); Tramadol Not Detected ng/mL (Cutoff: 25); Triazolam Not Detected ng/mL (Cutoff: 10); Zolpidem Phenyl-4-Carboxy acid Not Detected ng/mL (Cutoff: 10); pH 7.5
[2022-10-16 11:22] LABS: Carboxy-THC Interpretation Positive.; Delta-9 CarboxyThc by LC-MS/MS >500.0 ng/mL (Cutoff:<3)
== END 2022-08-30 13:47 | disposition home or self-care (01) ==
LOC: LBN 13:46
PROVIDERS: PCP Nurse Practitioner Family; Visit Provider Nurse Practitioner Psychiatric/Mental Health
DX: F43.10 Post-traumatic stress disorder, unspecified (principal)
CPT/HCPCS: 80307; 80347; 80349; 80364

== ENCOUNTER 2023-01-03 14:00 | Outpatient (REF) | payer OTHER, MEDICAID, SELFPAY ==
[2023-01-03 20:51] LABS: HCT 36.9 % (36.0-46.0); HGB 12.7 g/dL (11.2-15.7); MCH 33.6 pg (27.0-33.0); MCHC 34.4 % (32.0-36.0); MCV 98 fL (80-95); MPV 11.1 fL (8.0-11.0); Platelet Count 239 10^3/uL (130-400); RBC 3.78 10^6/uL (3.93-5.22); RDW 12.9 % (11.7-14.6); RDW-SD 46.1 fL; WBC 8.93 10^3/uL (4.4-10.8)
[2023-01-03 21:27] LABS: VALPROIC ACID 56.4 ug/mL
[2023-01-03 21:50] LABS: ALT 19 U/L (14-59); AST 13 U/L (15-37); Albumin 3.8 g/dL (3.4-5.0); Alkaline Phosphatase 96 U/L (46-116); Anion Gap 11.5 mmol/L (3-11); BUN 10 mg/dL (7-18); Bilirubin, Total 0.3 mg/dL (0.2-1.0); CO2 25.5 mmol/L (21.0-32.0); CREATININE 0.8 mg/dL (0.55-1.02); Calcium 8.8 mg/dL (8.5-10.1); Chloride 100 mmol/L (98-107); Glucose 84 mg/dL (74-106); Potassium 4.1 mmol/L (3.5-5.1); Sodium 137 mmol/L (136-145); TSH (W/Ref FT4) 1.43 uIU/mL (0.36-3.74); Total Protein 7.3 g/dL (6.4-8.2)
[2023-01-05 10:02] LABS: HIV-1/2 Ag & Ab Screen Negative (Negative)
[2023-01-07 09:56] LABS: Hepatitis C Ab w Rflx HCV PCR Negative (Negative)
== END 2023-01-03 14:01 | disposition home or self-care (01) ==
LOC: NCHCN 14:00
PROVIDERS: PCP Nurse Practitioner Family; Visit Provider Nurse Practitioner Family
DX: E03.9 Hypothyroidism, unspecified (principal); Z79.899 Other long term (current) drug therapy; Z51.81 Encounter for therapeutic drug level monitoring; Z11.4 Encounter for screening for human immunodeficiency virus [HIV]; Z11.59 Encounter for screening for other viral diseases; F43.10 Post-traumatic stress disorder, unspecified
CPT/HCPCS: 80053; 85027; 86803; 87389; 80164; 84443

== ENCOUNTER → 2023-02-26 12:24 | Outpatient (BNVA) | payer OTHER, MEDICAID, SELFPAY | PROVIDERS: PCP Nurse Practitioner Family; Visit Provider Nurse Practitioner Adult Health | DX: G43.909 Migraine, unspecified, not intractable, without status migrainosus (principal); G89.29 Other chronic pain; F39 Unspecified mood [affective] disorder; Z72.0 Tobacco use | CPT/HCPCS: 99213 ==

== ENCOUNTER → 2023-03-26 07:42 | Outpatient (BNVA) | payer OTHER, MEDICAID, SELFPAY | PROVIDERS: PCP Nurse Practitioner Family; Referring Provider Nurse Practitioner Family; Visit Provider Nurse Practitioner Adult Health | DX: G43.909 Migraine, unspecified, not intractable, without status migrainosus (principal) | CPT/HCPCS: 99211 ==

== ENCOUNTER 2023-05-05 00:40 | Emergency (ER) | payer OTHER, MEDICAID, SELFPAY ==
[2023-05-05 00:45] VITALS: BP 103/75; PULSE 58; RESP 16; TEMP 36.6; O2SAT 97
--- NOTE | 2023-05-05 01:00 | DI.RAD_ITS ---
Exam(s) XR LUMBAR SPINE AP, LAT EXAM: XR LUMBAR SPINE AP, LAT CLINICAL HISTORY: LBP. TECHNIQUE: 2D digital imaging was performed. Five views. COMPARISON: No exams were available for comparison FINDINGS: BONES: No fracture or destructive lesion. Vertebral body heights are maintained. Mild facet hypertro phy identified at L4-5 and L5-S1.. DISKS: Narrowing of the L5-S1 disc and small endplate osteophytes. The remain intervertebral disc sp aces are maintained. ALIGNMENT: Lumbar spinal alignment is within normal limits. SOFT TISSUE: Aorta calcified but normal in diameter IMPRESSION: Degenerative changes at L5-S1 DATA REPOSITORY: RADIATION DOSE DELIVERED:
[2023-05-05] MEDS: Cyclobenzaprine 10 MG TAB PO (01:12)
--- NOTE | 2023-05-05 01:33 | W.ED.GENAD ---
Discharge Plan Disposition Patient Disposition: Home Condition: Good Discharge Details Clinical Impression: Chronic lower back pain Primary Care Provider: Demi Goins ED Provider: Tyrone Agee Home Meds and New Rx's Prescriptions: New cyclobenzaprine 10 mg tablet 10 mg PO TID PRNQty: 14 0RF Continued levothyroxine 75 mcg capsule 75 mcg PO DAILY divalproex [Depakote ER] 500 mg tablet extended release 24 hr 500 mg PO DAILY oxybutynin chloride 5 mg tablet 5 mg PO BID Viibryd 20 mg tablet 40 mg PO DAILY Rx Instructions: must administer with a meal/food prazosin 1 mg capsule 1 mg PO QHS ferrous gluconate [Ferate] 240 mg (27 mg iron) tablet 240 mg PO DAILY celecoxib 200 mg capsule 200 mg PO DAILY clonazepam 0.5 mg tablet 0.5 mg PO QHS Rx Instructions: administer 30 minutes before bedtime Emgality Pen 120 mg/mL pen injector 120 mg subcut ONCE Qty: 1 11RF albuterol sulfate 90 mcg/actuation HFA aerosol inhaler 2 puff inhalation Q6H PRN Vraylar 4.5 mg capsule 4.5 mg PO DAILY sumatriptan succinate [Imitrex STATdose Pen] 4 mg/0.5 mL pen injector 4 mg subcut DAILY PRN Rx Instructions: do not exceed 2 doses in a 24 hour period Discharge Instructions Instructions: Low Back Strain (ED) Medical Decision Making Medical Records Medical records narrative: This patient presents with back pain most consistent with musculoskeletal lower back pain. Differential diagnoses includes lumbago versus musculoskeletal spasm / strain versus sciatica. Less likely sciatica as straight leg raise test was negative. No back pain red flags on history or physical. Presentation not consistent with malignancy (lack of history of malignancy, lack of B symptoms), fracture (no trauma, no bony tenderness to palpation), cauda equina (, no saddle anesthesia, no distal weakness), AAA, viscus perforation, osteomyelitis or epidural abscess (no IVDU, vertebral tenderness), renal colic, pyelonephritis (afebrile, no CVAT, no urinary symptoms). Plain film x-ray shows fusion of the L5-S1 vertebrae. We will discharge patient with muscle relaxers and encouraged her to follow-up with her primary care provider for further evaluation. Should her pain continue or should she start to develop any radicular symptoms I recommended an MRI of the lower back. Imaging Data Radiologic Study: Attestation: I personally reviewed and interpreted this imaging study as follows: Imaging: X-Ray My impression: Partial fusion of the L5-S1 interface. Radiologist's impression: Pending HPI General Date/Time Provider Initiated Documentation: 05/05/23 01:06. Limitations to Documentation: no limitations. Information obtained by: patient. HPI Narrative: Patient with a distant history of a cervical compression injury for which she has a fusion. Now presents with recurrent lower back pain. She works in a grocery store doing heavy lifting. States that the last 2 days she was lifting quite a lot. Now complains of lower back tightness and burning pain of the lower back. Denies radicular pain to the lower extremities. Denies burning sensation or weakness of the bilateral lower feet. Patient states that she has urinary incontinence but she has had this for years. Recently saw her primary care provider and complained of lower back pain. Was referred for plain film x-rays that she hopes to undergo chiropractic treatment to help her chronic lower back pain. She is suffering from acute on chronic back pain and that is the reason for presentation to the emergency department. No dysuria no hematuria. No fevers no chills. Related Data Home Medications Medication Instructions Recorded Confirmed divalproex 500 mg tablet,extended 500 mg PO DAILY 09/20/21 05/05/23 release 24 hr (Depakote ER) levothyroxine 75 mcg capsule 75 mcg PO DAILY 09/20/21 05/05/23 oxybutynin chloride 5 mg tablet 5 mg PO BID 09/20/21 05/05/23 albuterol sulfate 90 mcg/actuation 2 puff inhalation Q6H PRN 10/23/21 05/05/23 aerosol inhaler cariprazine 4.5 mg capsule 4.5 mg PO DAILY 10/23/21 05/05/23 (Vraylar) sumatriptan succinate 4 mg/0.5 mL 4 mg subcut DAILY PRN 12/11/21 05/05/23 subcutaneous pen injector (Imitrex STATdose Pen) celecoxib 200 mg capsule 200 mg PO DAILY 01/23/22 05/05/23 clonazepam 0.5 mg tablet 0.5 mg PO QHS 01/23/22 05/05/23 ferrous gluconate 240 mg (27 mg 240 mg PO DAILY 01/23/22 05/05/23 iron) tablet (Ferate) prazosin 1 mg capsule 1 mg PO QHS 01/23/22 05/05/23 vilazodone 20 mg tablet (Viibryd) 40 mg PO DAILY 01/23/22 05/05/23 galcanezumab-gnlm 120 mg/mL 120 mg subcut ONCE #1 mL 03/26/23 05/05/23 subcutaneous pen injector (Emgality Pen) cyclobenzaprine 10 mg tablet 10 mg PO TID PRN #14 tabs 05/05/23 Previous Rx's Medication Instructions Recorded galcanezumab-gnlm 120 mg/mL 120 mg subcut ONCE #1 mL 03/26/23 subcutaneous pen injector (Emgality Pen) cyclobenzaprine 10 mg tablet 10 mg PO TID PRN #14 tabs 05/05/23 Allergies Allergy/AdvReac Type Severity Reaction Status Date / Time No Known Allergies Allergy Verified 05/05/23 00:52 General Stated Complaint: Nk/Back Pain ORALIA: 3 Review of Systems Narrative: CONST: Negative for fever, body aches and chills. HENT: Negative for neck pain/stiffness, headache, congestion, sore throat, swelling. EYES: Negative for discharge/pain or vision changes. RESP: Negative for cough/hemoptysis and shortness of breath. CV: Negative chest pain, difficulty breathing, palpitations. ABD: Negative pain, nausea, vomiting. : Negative increase frequency, dysuria, blood in urine or stool. MUSC: . SKIN: Negative rash, lesions/sores. NEURO: Negative headache, dizziness, weakness. PFSH All Active Problems COPD (chronic obstructive pulmonary disease) (Chronic) Migraines (Chronic) Smoker (Acute) Screening for colon cancer (Acute) Tubular adenoma of colon (Acute) Hyperplastic colon polyp (Acute) Chronic lower back pain (Chronic) Medical History Candidal skin infection Cervical disc disease Depression Dyspareunia Fatigue H/O drug abuse Pos. UDS 06/18 H/O suicide attempt H/O syphilis Hypothyroid Incontinence of urine in female Schizoaffective disorder Seasonal allergies Surgical History H/O section History of colonoscopy (~05/2022) Hx of hysterectomy for benign disease S/P cervical spinal fusion Family History Other Cancer Depression Heart disease Social History Smoking/Tobacco Use Status: Current every day Tobacco Type: cigarettes Quit status: considering quitting Smoking risk assessment performed?: Yes Alcohol Intake: never Drug use: Current Sobriety Substance use type: former substance user and marijuana Details: marijuana daily Do you think of yourself as: straight/heterosexual Current gender identity: female What is your relationship status?: Panel score (0-1 are the most socially isolated patients): 0 Teresa/Adventist: Restorationism Do you feel safe at home: Yes (lives with parents) Do you feel safe in your relationship?: Yes Female Reproductive History Menstrual Age of Menarche: 14 Duration of menses: 3-5 days control method: none Menopause type: surgical History Past Pregnancies Del. Date GA/Weeks # Preg Succ Route Wgt Sex Labor Lgth Anesthesia Location [facility] 07/04/88 41 No 4479.225 g Male [facility] 02/23/90 40 No Female [facility] 06/25/92 40 No Female [facility] Exam Narrative Exam Narrative: GENERAL APPEARANCE NAD, activity normal for age, well developed/ well nourished, no cyanosis, pallor, or diaphoresis. ABDOMINAL Soft, ND/NT. No evidence of fluid wave. No pulsatile masses on exam, rebound tenderness, Solares sign or pain over Mcburney's point. No CVA tenderness. MUSCLES/EXTREMITIES diffuse tenderness to palpation of the lumbosacral region. SKIN Warm, pink and dry. No rashes, dermatoses, petechiae or lesions. NEUROLOGICAL Speech is clear and appropriate. Normal level of consciousness. Gait and coordination are normal. 5/5 strength in all extremities. No L5 of S1 deficit of the bilateral feet. No patellar hyperreflexia. No sensory deficit of the lower extremities. PSYCH Normal mood and affect. Judgement/competence is appropriate Course Vital Signs Vital signs: Vital Signs Temperature 36.6 C 05/05/23 00:45 Pulse 58 L 05/05/23 00:45 Respiratory Rate 16 05/05/23 00:45 Blood Pressure 103/75 05/05/23 00:45 Pulse Oximetry 97 05/05/23 00:45 Temperature 36.6 C 05/05/23 00:45 Temperature Source Oral 05/05/23 00:45 Pulse 58 L 05/05/23 00:45 Respiratory Rate 16 05/05/23 00:45 Respiratory Effort Normal 05/05/23 00:45 Blood Pressure 103/75 05/05/23 00:45 Pulse Oximetry 97 05/05/23 00:45 Oxygen Delivery Method Room Air 05/05/23 00:45 Oxygen Flow Rate 0 05/05/23 00:45 Pain Level 8 05/05/23 00:55
[2023-05-05 01:40] VITALS: BP 120/82; PULSE 70; RESP 16; TEMP 36.6; O2SAT 97
--- NOTE | 2023-05-05 02:39 | DI.VRAD_ITS ---
PROCEDURE INFORMATION: Exam: XR Lumbosacral Spine Exam date and time: 05/05/2023 1:19 AM Age: 52 years old Clinical indication: Low back pain; Patient HX: Lbp TECHNIQUE: Imaging protocol: Radiologic exam of the lumbosacral spine. Views: 2 or 3 views. COMPARISON: No relevant prior studies available. FINDINGS: Bones/joints: AP and lateral views of the lumbar spine are submitted with a coned-down lateral view of the lumbosacral junction. There is prominent discogenic degeneration at L5-S1 with loss of disc height, anterior osteophyte formation, facet arthrosis, and apparent neural foraminal narrowing. Mild deformity of the distal sacrum has an appearance suspicious for an old tailbone fracture. No acute lumbar fracture or malalignment is seen. Soft tissues: No gross focal soft tissue abnormality is demonstrated. Vasculature: There is extensive atherosclerotic calcification through the abdominal aorta but no obvious aneurysmal dilatation. IMPRESSION: 1. No lumbar fracture or malalignment seen. 2. Prominent discogenic degeneration at L5-S1, as described. Dictated and Authenticated by: Jake Barron MD. Ordering:ROB Hansen MD
== END 2023-05-05 01:40 | disposition home or self-care (01) ==
PROVIDERS: Emergency Provider Emergency Medicine; PCP Nurse Practitioner Family
DX: M54.50 Low back pain, unspecified (principal); M54.6 Pain in thoracic spine; G89.29 Other chronic pain; M43.26 Fusion of spine, lumbar region; Z79.899 Other long term (current) drug therapy
CPT/HCPCS: 99283; 72100; 81003

== ENCOUNTER → 2023-06-06 00:55 | Outpatient (CLI) | payer OTHER, MEDICAID, SELFPAY ==
--- NOTE | 2023-06-06 | DI.MRI_ITS ---
Exam(s) MR LUMBAR SPINE WO EXAM: MR LUMBAR SPINE WO CLINICAL HISTORY: LOW BACK PAIN, M54.50. TECHNIQUE: Multiplanar multisequence MRI of the Lumbar spine was performed. COMPARISON: CR,XR XR LUMBAR SPINE AP, LAT from 05/05/2023 FINDINGS: Bones: The last intervertebral disc space is designated the L5/S1 level for the numbering purpose of this examination. The vertebral body heights are well maintained. Alignment is satisfactory. Endpla te degenerative signal changes are seen particularly at L5-S1. There is disc desiccation at L4-5 and L5-S1. Cord: The conus tip ends at the L1 level. It is of normal size and signal intensity. T12-L1: No disc herniations or bulges are present. No central spinal canal or neural foraminal stenos is. L1-2: No disc herniations or bulges are present. No central spinal canal or neural foraminal stenosis . L2-3: No disc herniations or bulges are present. No central spinal canal or neural foraminal stenosis . L3-4: No disc herniations or bulges are present. Mild degenerative changes of the facets are seen.No significant central spinal canal or neural foraminal stenosis. L4-5: There is a small diffuse disc bulge slightly asymmetric to the left. There are degenerative ch anges of the facets. There is mild narrowing of the central spinal canal.No significant neural barb inal stenosis. L5-S1: There is a small central disc herniation. No central spinal canal or neural foraminal stenosi s. Soft tissues: The visualized SI joints and sacrum are well maintained. The paraspinal soft tissues ar e unremarkable. IMPRESSION: 1. Small central disc herniation at L5-S1, but no central spinal canal or neural foraminal stenosis i s present. 2. Degenerative changes at L4-L5 resulting in mild narrowing of the central spinal canal. DATA REPOSITORY:
== END ==
PROVIDERS: PCP Nurse Practitioner Family; Visit Provider Nurse Practitioner Family
DX: M48.061 Spinal stenosis, lumbar region without neurogenic claudication (principal); M54.50 Low back pain, unspecified
CPT/HCPCS: 72148

== ENCOUNTER 2023-07-02 16:45 | Outpatient (REF) | payer OTHER, MEDICAID, SELFPAY ==
[2023-07-02 16:18] LABS: Bilirubin Negative (Negative); Blood Negative (Negative); Clarity Clear (Clear); Glucose Negative (Negative); Ketones Negative (Negative); Leukocyte Esterase Negative (Negative); Nitrite Negative (Negative); Urobilinogen 0.2 mg/dL (Up to 0.2)
[2023-07-02 18:33] LABS: ALT 20 U/L (14-59); AST 23 U/L (15-37); Albumin 4.1 g/dL (3.4-5.0); Alkaline Phosphatase 105 U/L (46-116); Bilirubin, Direct 0.1 mg/dL (0.0-0.2); Bilirubin, Total 0.4 mg/dL (0.2-1.0); TSH (W/Ref FT4) 1.74 uIU/mL (0.36-3.74); Total Protein 7.5 g/dL (6.4-8.2)
[2023-07-03 10:18] LABS: HIV-1/2 Ag & Ab Screen Negative (Negative)
[2023-07-03 11:13] LABS: Hepatitis A Antibody IgM Negative (Negative); Hepatitis B Core Antibody Negative (Negative); Hepatitis B surface Ag Negative (Negative); Hepatitis C Ab w Rflx HCV PCR Negative (Negative)
[2023-07-03 13:09] LABS: Chlamydia Result Negative (Negative); GC Result Negative (Negative)
[2023-07-03 23:16] LABS: Syphilis IgG w/Reflex Equivocal (Nonreactive)
[2023-07-04 11:12] LABS: RPR Screen w/Reflex Negative (Negative)
[2023-07-04 16:05] LABS: Syphilis Ab, TP-PA Positive (Negative)
== END 2023-07-02 16:46 | disposition home or self-care (01) ==
LOC: NCHCN 16:45
PROVIDERS: PCP Nurse Practitioner Family; Visit Provider Nurse Practitioner Family
DX: E03.9 Hypothyroidism, unspecified (principal); Z11.3 Encounter for screening for infections with a predominantly sexual mode of transmission; R31.9 Hematuria, unspecified
CPT/HCPCS: 0064U; 80076; 86704; 86709; 86780; 86803; 87340; 87389; 87491; 87591; 81003; 84443; 87480; 87510; 87660